=== PATIENT | female | born 1945 | race African-American/Black ===

== ENCOUNTER 2016-10-17 13:18 | Emergency (ER) | payer OTHER ==
[~2016-10-17] VITALS: Ht 154.9 cm; Wt 62.1 kg
[~2016-10-17 13:18] MED LIST: AMARYL2 MG PO; HYDROCHLOROTH12.5 M1 PO; LISINOPRIL10 MG PO; ZETIA10 MG PO
[2016-10-17 15:08] LABS: BASOPHILS 0.8 % (0.0-2.0); EOSINOPHILS 3.9 % (0.0-3.0); HEMATOCRIT 34.9 % (37.0-47.0); HEMOGLOBIN 11.4 gm/dL (12.0-15.0); LYMPHOCYTES 35.7 % (24.0-44.0); MANUAL DIFF NO; MCH 26.4 pg (26.0-34.0); MCHC 32.8 g/dL (28.0-37.0); MCV 80.5 fL (80.0-100.0); MONOCYTES 5.3 % (1.0-8.0); PLATELET COUNT 284 thou/uL (150-400); POLYS 54.3 % (36.0-66.0); RBC 4.33 mil/uL (4.20-5.00); RDW 13.9 % (10.5-14.5); WBC 9.2 thou/uL (4.0-11.0)
[2016-10-17 15:15] LABS: CALCIUM 9.3 mg/dL (8.5-10.1); CREATININE 1.8 mg/dL (0.6-1.3); POTASSIUM 3.3 mmol/L (3.5-5.1)
[2016-10-17 15:17] LABS: URIC ACID* 9.6 mg/dL (2.6-7.2)
[2016-10-17] MEDS ORDERED: INDOMETHACIN 2525 MG PO (15:19)
== END 2016-10-17 15:47 | disposition home or self-care (01) ==
LOC: ER 13:18
PROVIDERS: Nurse Practitioner Family
DX: M10.9 Gout, unspecified (principal); E11.9 Type 2 diabetes mellitus without complications; Z88.5 Allergy status to narcotic agent

== ENCOUNTER → 2017-07-30 | Outpatient (CLI) | payer OTHER ==
[~2017-07-30] MED LIST changes: +INDOMETHACIN 2525 MG PO; +METHOCARBAMOL500 M1 PO; +NORVASC5 MG PO
== END ==
LOC: NUC 07:58
DX: E78.00 Pure hypercholesterolemia, unspecified (principal); R07.89 Other chest pain; R06.02 Shortness of breath

== ENCOUNTER 2017-11-20 12:43 | Emergency (ER) | payer OTHER ==
[~2017-11-20] VITALS: Ht 154.9 cm; Wt 61.2 kg
[~2017-11-20 12:43] MED LIST changes: -METHOCARBAMOL500 M1 PO; -NORVASC5 MG PO
[2017-11-20] MEDS ORDERED: NORVASC5 MG PO (13:47)
[2017-11-20 13:51] LABS: ABSOLUTE NEUTROPHILS 3.6 thou/uL (1.4-8.2); BASOPHILS 0.5 % (0.0-2.0); EOSINOPHILS 9.4 % (0.0-3.0); HEMATOCRIT 35.5 % (37.0-47.0); HEMOGLOBIN 11.5 gm/dL (12.0-15.0); LYMPHOCYTES 30.8 % (24.0-44.0); MCH 25.6 pg (26.0-34.0); MCHC 32.3 g/dL (28.0-37.0); MCV 79.4 fL (80.0-100.0); PLATELET COUNT 289 thou/uL (150-400); POLYS 51.3 % (36.0-66.0); RBC 4.47 mil/uL (4.20-5.00); RDW 15.6 % (10.5-14.5)
[2017-11-20 13:57] LABS: URINE BILIRUBIN NEGATIVE (Negative); URINE BLOOD 2+ (Negative); URINE CLARITY CLEAR; URINE COLOR YELLOW; URINE GLUCOSE-RANDOM* 1+ (Negative); URINE KETONES NEGATIVE (Negative); URINE LEUKOCYTES-REFLEX NEGATIVE (Negative); URINE NITRITE-REFLEX NEGATIVE (Negative); URINE PROTEIN (DIPSTICK) 2+ (Negative); URINE SPECIFIC GRAVITY >= 1.030 (1.005-1.035); URINE UROBILINOGEN 0.2 E.U./dl (0.2-1.0)
[2017-11-20 13:59] LABS: CALCIUM 9.3 mg/dL (8.5-10.1); CREATININE 1.2 mg/dL (0.6-1.0); POTASSIUM 3.3 mmol/L (3.5-5.1)
[2017-11-20 14:05] LABS: HYALINE CASTS 0-3 Few /LPF (None Seen); MUCUS 0-3 Light strn/LPF (None Seen); SQUAMOUS >10 Many /LPF (0-3)
[2017-11-20 14:06] LABS: CRYSTALS None Seen /LPF (None Seen); URINE RBC 0-2 Rare /HPF (0-2); URINE WBC-REFLEX 0-5 Rare /HPF (0-5)
[2017-11-20] MEDS ORDERED: METHOCARBAMOL500 M1 PO (17:29)
[2017-11-20 18:39] VITALS: BP 160/79
== END 2017-11-20 18:00 | disposition home or self-care (01) ==
LOC: ER 12:43
PROVIDERS: Emergency Medicine
DX: R03.0 Elevated blood-pressure reading, without diagnosis of hypertension (principal); E11.9 Type 2 diabetes mellitus without complications; Z88.5 Allergy status to narcotic agent